=== PATIENT | male | born 1990 ===

== ENCOUNTER 2019-05-22 17:46 | Emergency (ER) | payer SELFPAY ==
--- NOTE | 2019-05-22 18:59 | Emergency Department Report ---
Blank Doc - Documentation Documentation: 28-year-old male that presents with left eye pain and redness. Stated has for eign body sensation. Translation used during interview. This initial assessment/diagnostic orders/clinical plan/treatment(s) is/are subject to change based on patient's health status, clinical progression and re- assessment by fellow clinical providers in the ED. Further treatment and workup at subsequent clinical providers discretion. Patient/guardians urged not to elope from the ED as their condition may be serious if not clinically assessed and managed. Initial orders include: 1- Patient sent to [facility] for further evaluation and treatment 2- ibarra lamp 3- visual test
--- NOTE | 2019-05-22 21:31 | Emergency Department Report ---
Eye Injury/Foreign Body - HPI Duration: 1 Day Eye Location: Left Severity: Mild Tetanus Status: Up to Date Eye Symptoms: Eye Pain: Yes, Eye Redness: Yes, Grinding/Hammering Metal: No, Used Eye Protection: No, Contact Lens Use: No, Photophobia: Yes Other History: 28-year-old male to emergency department complaining of left eye pain and drainage and excessive tearing for the past one day. Reports no trauma. No fevers, chills, sweats no chest pain palpitations no nasal congestion or sore throat. ED Review of Systems ROS: Stated complaint: LFT EYE PINK/PAIN Other details as noted in HPI Comment: All other systems reviewed and negative ED Past Medical Hx - Past Medical History Previous Medical History?: No - Surgical History Past Surgical History?: No - Social History Smoking Status: Never Smoker Substance Use Type: None - Medications Home Medications: Home Medications Medication Instructions Recorded Confirmed Last Taken Type Ketorolac Tromethamin 0.4%(Nf) 1 drop OP QID #1 bottle 05/22/19 Unknown Rx [Acular Ls 0.4% Ophth Trisha] Tobramycin [Tobrex] 1 drop OP Q4H #1 bottle 05/22/19 Unknown Rx Eye Injury Exam - Exam General: Vital signs noted. No distress. Alert and acting appropriately. - Visual Acuity Right Vision Acuity Degree: 20/40 Eye Exam: Neither Injection, Neither EOMI, Neither Mucous Discharge, Neither Photophobia Left Vision Acuity Degree: 20/40 Eye Exam: Left Injection, Left Mucous Discharge, Left Photophobia Bilateral Vision Acuity Degree: 20/30 Exam: Nose no nasal congestion noted. Pharynx is clear airway patent, tongue and uvula. Midline ED Course Vital Signs 05/22/19 17:51 Temperature 97.8 F Pulse Rate 82 Respiratory 17 Rate Blood Pressure 143/75 O2 Sat by Pulse 97 Oximetry Critical care attestation.: If time is entered above; I have spent that time in minutes in the direct care of this critically ill patient, excluding procedure time. ED Disposition Clinical Impression: Conjunctivitis Disposition: DC-01 TO HOME OR SELFCARE Is pt being admited?: No Does the pt Need Aspirin: No Condition: Stable Instructions: Conjunctivitis (ED) Prescriptions: Ketorolac Tromethamin 0.4%(Nf) [Acular Ls 0.4% Ophth Trisha] 1 drop OP QID #1 bottle Tobramycin [Tobrex] 1 drop OP Q4H #1 bottle Referrals: [facility] [Provider Group] - 3-5 Days
[2019-05-22 22:17] VITALS: BP 111/78
== END 2019-05-22 22:17 | disposition home or self-care (01) ==
LOC: EDBD → ED 17:46
DX: H10.9 Unspecified conjunctivitis (principal)